=== PATIENT | female | born 1995 | race African-American/Black ===

== ENCOUNTER 2017-06-14 18:07 | Emergency (ER) | payer BC, OTHER ==
[~2017-06-14] VITALS: Ht 165.1 cm; Wt 81.6 kg
[2017-06-14 18:11] VITALS: TEMP 36.8; Ht 165.1 cm; Wt 81.6 kg
[2017-06-14] MEDS ORDERED: SODIUM CHLORIDE 0.9% 1000ML 1,000 ML IV STA (18:20)
--- NOTE | 2017-06-14 18:23 | EMERGENCY ROOM VISIT NOTE ---
History Report prepared by Brenda: Osvaldo Seals Under the Supervision of: Parveen ValadezO. First contact with patient: 18:15 Chief Complaint: CHEST PAIN Stated Complaint: CHEST PAIN Nursing Triage Summary: pt reports a couple days ago had sob and felt like she could not breath. felt like she was going to pass out . tightness in chest left chest today after working History of Present Illness The patient is a 21 year old female who presents to the Emergency Room with complaints of intermittent chest pain beginning two days ago. The patient states she woke up to make breakfast two days ago when her first episode occurred. She reports it started with lightheadedness and then developed shortness of breath, blurry vision, chest pain, sweating, and nausea. The patient notes she sat down, but it did not help, so she walked to her room. She states she could not catch her breath when she lied down, and as soon as she sat up, her symptoms worsened. The patient reports it happened again yesterday, but she ignored it. She notes she developed left sided chest pain at work today. The patient states she tried taking Aleve, Motrin, and a baby aspirin today, but nothing was helping. She reports she experienced pain in her legs today. The patient notes her LNMP was a month ago, and she is not on control. She states she recently had excessive blood removed from her left eye after rupturing 5 blood vessels. The patient denies difficulty eating or drinking and diarrhea. Source of History: patient Onset: two days ago Position: chest Timing: intermittent Modifying Factors (Worsening): other (sitting up) Associated Symptoms: + SOB, + nausea, No diarrhea Note: Associated symptoms: lightheadedness, sweating, blurry vision, pain in leg Denies: difficulty eating or drinking Review of Systems See HPI for pertinent positives & negatives. A total of 10 systems reviewed and were otherwise negative. Past Medical & Surgical Medical Problems: (1) No known problems Family History Diabetes mellitus Hypertension Social History Smoking Status: Current Some Day Smoker Alcohol Use: none Housing Status: lives with family Current/Historical Medications Scheduled PRN Ibuprofen (Advil), 800 MG PO BID PRN for Pain Naproxen (Aleve), 220 MG PO BID PRN for Pain Allergies Coded Allergies: No Known Allergies (Verified , `, 10/24/14) Physical Exam Vital Signs Date Time Temp Pulse Resp B/P (MAP) Pulse Ox O2 Delivery O2 Flow Rate FiO2 06/14/17 19:38 63 18 124/78 98 Room Air 06/14/17 18:32 99 Room Air 06/14/17 18:28 66 20 129/84 73 134/82 98 113/69 06/14/17 18:27 68 06/14/17 18:11 36.8 73 18 128/80 100 Room Air Physical Exam GENERAL: Patient is awake, alert, and in no acute distress. Patient is resting comfortably and showing no signs of anxiety EYES: The conjunctivae are clear. The pupils are round and reactive. EARS, NOSE, MOUTH AND THROAT: The nose is without any evidence of any deformity. Mucous membranes are moist tongue is midline NECK: The neck is nontender and supple. RESPIRATORY: Normal respiratory effort is noted there is no evidence of wheezing rhonchi or rales CARDIOVASCULAR: Regular rate and rhythm noted there no murmurs rubs or gallops normal S1 normal S2 GASTROINTESTINAL: The abdomen is soft. Bowel sounds are present in all quadrants. Abdomen is nontender MUSCULOSKELETAL/EXTREMITIES: There is no evidence of gross deformity full range of motion is noted in the hips and shoulders SKIN: There is no obvious evidence of any rash. There are no petechiae, pallor or cyanosis noted. NEUROLOGIC: Patient is awake alert and oriented x3 strength is symmetric patellar reflexes are 2+ bilaterally Medical Decision & Procedures ER Provider Diagnostic Interpretation: X-ray results as stated below per interpretation by me and the radiologist. CHEST ONE VIEW PORTABLE HISTORY: 21 years-old Female EVALUATE ALTERED MENTAL STATUS/WEAKNESS acute altered mental status COMPARISON: CTA of the chest 04/05/2014 TECHNIQUE: Portable AP view of the chest FINDINGS: Cardiomediastinal and hilar silhouettes are within normal limits. There is no pneumothorax, pleural effusion, focal airspace consolidation or overt pulmonary edema. The bones of the chest appear grossly intact. IMPRESSION: No acute process. The above report was generated using voice recognition software. It may contain grammatical, syntax or spelling errors. Electronically signed by: Khoa Shepard M.D. 06/14/2017 6:56 PM Dictated Date/Time: 06/14/2017 6:55 PM Laboratory Results 06/14/17 18:27 Red Blood Count 4.51, Mean Corpuscular Volume 75.2, Mean Corpuscular Hemoglobin 24.4, Mean Corpuscular Hemoglobin Concent 32.4, Mean Platelet Volume 11.2, Neutrophils (%) (Auto) 50.1, Lymphocytes (%) (Auto) 41.8, Monocytes (%) (Auto) 6.9, Eosinophils (%) (Auto) 0.9, Basophils (%) (Auto) 0.2, Neutrophils # (Auto) 4.28, Lymphocytes # (Auto) 3.57, Monocytes # (Auto) 0.59, Eosinophils # (Auto) 0.08, Basophils # (Auto) 0.02 06/14/17 18:27 Test 06/14/17 18:27 06/14/17 18:38 06/14/17 18:40 White Blood Count 8.55 K/uL (4.8-10.8) Red Blood Count 4.51 M/uL (4.2-5.4) Hemoglobin 11.0 g/dL (12.0-16.0) Hematocrit 33.9 % (37-47) Mean Corpuscular Volume 75.2 fL (80-100) Mean Corpuscular Hemoglobin 24.4 pg (25-34) Mean Corpuscular Hemoglobin Concent 32.4 g/dl (32-36) Platelet Count 281 K/uL (130-400) Mean Platelet Volume 11.2 fL (7.4-10.4) Neutrophils (%) (Auto) 50.1 % Lymphocytes (%) (Auto) 41.8 % Monocytes (%) (Auto) 6.9 % Eosinophils (%) (Auto) 0.9 % Basophils (%) (Auto) 0.2 % Neutrophils # (Auto) 4.28 K/uL (1.4-6.5) Lymphocytes # (Auto) 3.57 K/uL (1.2-3.4) Monocytes # (Auto) 0.59 K/uL (0.11-0.59) Eosinophils # (Auto) 0.08 K/uL (0-0.5) Basophils # (Auto) 0.02 K/uL (0-0.2) RDW Standard Deviation 41.7 fL (36.4-46.3) RDW Coefficient of Variation 15.3 % (11.5-14.5) Immature Granulocyte % (Auto) 0.1 % Immature Granulocyte # (Auto) 0.01 K/uL (0.00-0.02) Anion Gap 5.0 mmol/L (3-11) Est Creatinine Clear Calc Drug Dose 88.6 ml/min Estimated GFR () 86.9 Estimated GFR (Non- 75.0 BUN/Creatinine Ratio 11.7 (10-20) Calcium Level 8.5 mg/dl (8.5-10.1) Magnesium Level 1.9 mg/dl (1.8-2.4) Total Bilirubin 0.6 mg/dl (0.2-1) Direct Bilirubin 0.1 mg/dl (0-0.2) Aspartate Amino Transf (AST/SGOT) 20 U/L (15-37) Alanine Aminotransferase (ALT/SGPT) 21 U/L (12-78) Alkaline Phosphatase 92 U/L (45-117) Troponin I < 0.015 ng/ml (0-0.045) Total Protein 7.3 gm/dl (6.4-8.2) Albumin 3.7 gm/dl (3.4-5.0) Thyroid Stimulating Hormone (TSH) 1.040 uIu/ml (0.300-4.500) Human Chorionic Gonadotropin, Qual NEG (NEG) Bedside D-Dimer 261 ng/mlFEU (0-450) Urine Color YELLOW Urine Appearance CLEAR (CLEAR) Urine pH 5.5 (4.5-7.5) Urine Specific [place] 1.021 (1.000-1.030) Urine Protein NEG (NEG) Urine Glucose (UA) NEG (NEG) Urine Ketones TRACE (NEG) Urine Occult Blood NEG (NEG) Urine Nitrite NEG (NEG) Urine Bilirubin NEG (NEG) Urine Urobilinogen NEG (NEG) Urine Leukocyte Esterase TRACE (NEG) Urine WBC (Auto) 1-5 /hpf (0-5) Urine RBC (Auto) 0-4 /hpf (0-4) Urine Hyaline Casts (Auto) 0 /lpf (0-5) Urine Epithelial Cells (Auto) >30 /lpf (0-5) Urine Bacteria (Auto) NEG (NEG) Laboratory results per my review. Medications Administered Medications (Trade) Dose Ordered Sig/Nicki Route Start Time Stop Time Status Last Admin Dose Admin Sodium Chloride 1,000 ml @ 999 mls/hr Q1H1M STAT IV 06/14/17 18:20 06/14/17 19:20 DC 1/21/18 18:20 999 MLS/HR ECG Indication: chest pain Rate (beats per minute): 61 Rhythm: normal sinus Findings: no ectopy, other (No acute ST changes) Comparison ECG Date: 04/05/14 Change: no significant change Change: Patient's EKG was interpreted by me. ED Course 1815: The patient was evaluated in room A10. A complete history and physical examination were performed. 1819: Ordered NSS 1,000 ml @ 999 mls/hr IV 1931: Upon reevaluation, the patient is resting comfortably. I discussed the results and treatment plan with her. She verbalized agreement of the treatment plan. The patient was discharged home. Medical Decision Differential diagnosis: Etiologies such as cardiac ischemia, aortic dissection, pulmonary embolism, pneumonia, pneumothorax, musculoskeletal, infections, pericarditis, myocarditis , esophageal rupture, gastrointestinal, as well as others were entertained. Nursing notes reviewed. The patient is a 21-year-old female who presented to emergency department for evaluation of chest pain palpitations and near syncope. The patient was treated with IV fluids in the emergency department. I discussed the patient's laboratory and radiographic studies with her. It does sound as though the patient has had similar symptoms in the past. Her EKG did not show any acute changes and her cardiac biomarkers were negative. The patient was encouraged to rest and avoid any strenuous activity. I also encouraged her to continue all medications as prescribed. I recommended that she follow-up with her family doctor to discuss any further follow-up testing such as echocardiogram and Holter monitoring. She was also encouraged to return the emergency Department immediately if symptoms change worsen or the need arises. Impression Primary Impression: Chest pain Additional Impressions: Palpitation Near syncope Scribe Attestation The scribe's documentation has been prepared under my direction and personally reviewed by me in its entirety. I confirm that the note above accurately reflects all work, treatment, procedures, and medical decision making performed by me. Departure Information Dispostion Home / Self-Care Referrals Veronica Cormier D.O. (PCP) Forms HOME CARE DOCUMENTATION FORM, IMPORTANT VISIT INFORMATION Patient Instructions ED Chest Pain Atypical Unkn Cause, My [facility] website Additional Instructions Continue to drink plenty of clear liquids. Call your family in the morning to schedule a follow-up appointment. You may require further studies such as an echocardiogram or a Holter monitor to further evaluate the causes her symptoms. Avoid any strenuous activity. Return to the emergency apartment immediately if symptoms change worsen or the need arises. Problem Qualifiers Primary Impression: Chest pain Chest pain type: unspecified Qualified Codes: R07.9 - Chest pain, unspecified
[2017-06-14 18:32] VITALS: O2SAT 99
[2017-06-14 18:45] LABS: BASO % 0.2 %; BASO ABS # 0.02 K/uL (0-0.2); EOS % 0.9 %; EOS ABS # 0.08 K/uL (0-0.5); HEMATOCRIT 33.9 % (37-47); IG# 0.01 K/uL (0.00-0.02); LYMPH % 41.8 %; LYMPH ABS # 3.57 K/uL (1.2-3.4); MEAN CELL VOLUME 75.2 fL (80-100); MEAN CORPUSCULAR HEMOGLOBIN 24.4 pg (25-34); MEAN CORPUSCULAR HGB CONC 32.4 g/dl (32-36); MEAN PLATELET VOLUME 11.2 fL (7.4-10.4); MONO % 6.9 %; MONO ABS # 0.59 K/uL (0.11-0.59); NEUT % 50.1 %; NEUT ABS # 4.28 K/uL (1.4-6.5); PLATELET COUNT 281 K/uL (130-400); RED CELL DISTRIBUTION WIDTH CV 15.3 % (11.5-14.5); RED CELL DISTRIBUTION WIDTH SD 41.7 fL (36.4-46.3); WHITE BLOOD COUNT 8.55 K/uL (4.8-10.8)
--- NOTE | 2017-06-14 18:58 | DIAGNOSTIC IMAGING REPORT ---
CHEST ONE VIEW PORTABLE HISTORY: 21 years-old Female EVALUATE ALTERED MENTAL STATUS/WEAKNESS acute altered mental status COMPARISON: CTA of the chest 04/05/2014 TECHNIQUE: Portable AP view of the chest FINDINGS: Cardiomediastinal and hilar silhouettes are within normal limits. There is no pneumothorax, pleural effusion, focal airspace consolidation or overt pulmonary edema. The bones of the chest appear grossly intact. IMPRESSION: No acute process. The above report was generated using voice recognition software. It may contain grammatical, syntax or spelling errors. Electronically signed by: Khoa Shepard M.D. 06/14/2017 6:56 PM Dictated Date/Time: 06/14/2017 6:55 PM
[2017-06-14 19:03] LABS: ALBUMIN 3.7 gm/dl (3.4-5.0); ALT/SGPT 21 U/L (12-78); AST/SGOT 20 U/L (15-37); BLOOD UREA NITROGEN 12 mg/dl (7-18); CALCIUM 8.5 mg/dl (8.5-10.1); CARBON DIOXIDE 27 mmol/L (21-32); CREATININE 1.06 mg/dl (0.60-1.20); GLUCOSE 67 mg/dl (70-99); POTASSIUM 3.5 mmol/L (3.5-5.1); SODIUM 137 mmol/L (136-145)
[2017-06-14] MEDS ORDERED: IBUP-1050 PO (19:09)
[2017-06-14] MEDS ORDERED: NAPR1TAB9 PO (19:09)
[2017-06-14 19:14] LABS: ALKALINE PHOSPHATASE 92 U/L (45-117); TOTAL PROTEIN 7.3 gm/dl (6.4-8.2)
[2017-06-14 19:38] VITALS: BP 124/78; PULSE 63; O2SAT 98
== END 2017-06-14 19:43 | disposition home or self-care (01) ==
LOC: C.EDB 18:09 → C.EDA 19:43
DX: R07.9 Chest pain, unspecified (principal); R00.2 Palpitations; R55 Syncope and collapse; F17.210 Nicotine dependence, cigarettes, uncomplicated